=== PATIENT | female | born 1960 ===

== ENCOUNTER 2020-02-20 09:26 | Emergency (ER) | payer BC ==
[2020-02-20 09:52] LABS: Absolute Neutrophil Ct (ANC) 6.71 (1.4-6.9); BASOPHIL % 0.3 % (0.0-0.4); Basophil (Absolute #) 0.03 (0-0.4); Eosinophil % 1.9 % (0.00-5.0); Eosinophil (Absolute #) 0.17 (0-0.5); Hematocrit 36.3 % (35-47); Hemoglobin 11.7 gm/dl (12.0-16.0); Lymphocyte (Absolute #) 1.59 (1.0-4.6); Lymphocytes % 17.5 % (24.0-44.0); Mean Cell Volume 77.4 fl (78-100); Mean Corpuscular Hemoglobin 24.9 pg (26-32); Mean Corpuscular Hgb Concent. 32.2 g/dl (32-36); Mean Platelet Volume 10.2 fl (7.5-11.0); Monocytes % 6.6 % (0.0-12.0); Neutrophil % 73.7 % (36.0-66.0); Platelet Count 309 K/mm3 (150-450); Red Blood Count 4.69 M/mm3 (4.1-5.4); Red Cell Distribution Width 14.2 % (11.5-14.0); White Blood Count 9.1 K/mm3 (4.0-10.5)
[2020-02-20 10:06] LABS: ALBUMIN 4.4 g/dL (3.5-5.0); ALKALINE PHOSPHATASE 57 U/L (38-126); AMYLASE 79 U/L (30-110); ANION GAP 12.4 MEQ/L (5-15); BLOOD UREA NITROGEN 14 mg/dL (7-17); CHLORIDE 104 mmol/L (98-107); Carbon Dioxide 26 mmol/L (22-30); Creatinine 1 0.69 mg/dL (0.52-1.04); Glucose 148 mg/dL (74-106); LIPASE 102 U/L (23-300); Potassium 3.4 mmol/L (3.5-5.1); SGOT/AST 19 U/L (14-36); SGPT/ALT 15 U/L (0-35); SODIUM 139 mmol/L (137-145); Total Protein 7.5 g/dL (6.3-8.2)
[2020-02-20 10:16] LABS: Appearance CLEAR (CLEAR); Bacteria RARE /HPF (NEGATIVE); Bilirubin NEGATIVE (NEGATIVE); Blood SMALL Ery/ul (0-5); Glucose NEGATIVE (NEGATIVE); Ketones NEGATIVE (NEGATIVE); Leukocyte Esterase MODERATE (NEGATIVE); Mucus SLIGHT /HPF (NEGATIVE); Nitrite NEGATIVE (NEGATIVE); Protein,Urine Dip NEGATIVE (Negative); Specific Gravity 1.011 (1.005-1.025); Urobilinogen NEGATIVE mg/dL (0-1)
[2020-02-20 10:27] LABS: Amphetamine,Urine NEGATIVE (NEGATIVE); Barbiturate,Urine NEGATIVE (NEGATIVE); Benzodiazepine,Urine NEGATIVE (NEGATIVE); Cocaine,Urine NEGATIVE (NEGATIVE); Methadone,Urine NEGATIVE (NEGATIVE); Opiate,Urine NEGATIVE (NEGATIVE); PCP,Urine NEGATIVE (NEGATIVE); THC,Urine NEGATIVE (NEGATIVE)
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
[2020-02-20] MEDS ORDERED: Sodium Chloride 0.9% 1000 ML 1,000 ML IV STA (12:15)
[2020-02-20] MEDS ORDERED: TORAdol 30 mg Injection IV ONE (12:16)
[2020-02-20] MEDS ORDERED: Sodium Chloride 0.9% 1000 ML 1,000 ML ONE (12:18)
[2020-02-20] MEDS ORDERED: TORAdol 30 mg Injection ONE (12:19)
[2020-02-20 12:28] VITALS: BP 164/86; PULSE 58
[2020-02-20 12:47] VITALS: O2SAT 98
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
== END 2020-02-20 13:11 | disposition home or self-care (01) ==
LOC: ED 09:26
DX: S16.1XXA Strain of muscle, fascia and tendon at neck level, initial encounter (principal); V57.0XXA Driver of pick-up truck or van injured in collision with fixed or stationary object in nontraffic accident, initial encounter; Y93.89 Activity, other specified; Y92.89 Other specified places as the place of occurrence of the external cause; G44.309 Post-traumatic headache, unspecified, not intractable; S20.219A Contusion of unspecified front wall of thorax, initial encounter; S30.1XXA Contusion of abdominal wall, initial encounter; S40.021A Contusion of right upper arm, initial encounter; S60.221A Contusion of right hand, initial encounter; S70.10XA Contusion of unspecified thigh, initial encounter; S60.511A Abrasion of right hand, initial encounter; N39.0 Urinary tract infection, site not specified; M54.2 Cervicalgia; Z79.899 Other long term (current) drug therapy; E11.9 Type 2 diabetes mellitus without complications; F32.9 Major depressive disorder, single episode, unspecified
CPT/HCPCS: 36415; 70450; 71260; 72125; 73060; 73130; 73552; 74177; 80053; 80307; 81001; 82150; 83690; 85025; 87086; 96374; 99285; J1885; G0480

== ENCOUNTER 2024-12-14 06:29 | Day surgery (SDC) | payer OTHER ==
[~2024-12-14 06:29] MED LIST: Lactated Ringers 1,000 ML IV ONE
[2024-12-14] MEDS: TETRACAINE 0.5% STERI-UNIT SOL OP ONE ×2 (06:47→07:32)
[2024-12-14] MEDS: Ak-Dilate OPHTHALMIC*** 0.71 ML, Cyclogyl 1% OPHTH SOL 0.71 ML, GATIFLOXACIN 0.5% OPHTH... OP SCH (06:48)
[2024-12-14] MEDS: Lactated Ringers 1,000 ML IV SCH (06:54)
[2024-12-14] MEDS ORDERED: VIGAMOX/BSS 0.15% SYR IO NR (08:15)
[2024-12-14] MEDS ORDERED: TRIAMCINOLONE 15 MG/ML INJ INTRAOP NR (08:15)
[2024-12-14] MEDS ORDERED: Epinephrine Preservative Free 1 MG/ML INTRAOP NR (08:15)
[2024-12-14] MEDS ORDERED: BETADINE 5% OPHTHALMIC 30 ML OP NR (08:15)
[2024-12-14] MEDS ORDERED: DEXMEDETOMIDINE 80 MCG/20ML-NS IV NR (08:15)
[2024-12-14] MEDS ORDERED: Zofran 4 MG/2 ML VIAL IV PRN (08:30)
[2024-12-14] MEDS ORDERED: propofoL IV ONE (09:15)
[2024-12-14] MEDS ORDERED: ROBINUL ONE (09:18)
[2024-12-14 09:34] VITALS: RESP 18
[2024-12-14] MEDS: ACETAZOLAMIDE 250 MG TABLET PO ONE (09:44)
[2024-12-14 09:50] VITALS: BP 128/83; PULSE 59; TEMP 97; O2SAT 99
== END 2024-12-14 10:02 | disposition home or self-care (01) ==
LOC: SDC 06:29
PROVIDERS: ATTEND Ophthalmology
DX: H25.811 Combined forms of age-related cataract, right eye (principal); E11.9 Type 2 diabetes mellitus without complications
CPT/HCPCS: 82947; C1780; J0171; J2704; A9270-GY